=== PATIENT | female | born 1945 | race Caucasian/White ===

== ENCOUNTER 2021-01-20 13:34 | Emergency (ER) | payer MEDICARE ==
[2021-01-20 14:32] LABS: #Monocytes 0.3 10x3/uL (0.0-1.1); %Basophils 0.3 % (0.0-2.0); %Eosinophils 0.3 % (0.0-6.0); %Lymphocytes 26.6 % (18.0-47.0); %Monocytes 8.4 % (0.0-10.0); %Neutrophils 64.1 % (40.0-75.0); Hemoglobin 11.8 g/dL (12.0-15.5); Mean Corpuscular HGB CONC 33.1 g/dL (32.0-36.0); Mean Corpuscular Volume 87.7 fl (81.6-98.3); Mean Platelet Volume 10.4 fl (7.4-10.4); Platelet Count 114 10x3/uL (150-450); RBC Distribution Width 12.2 % (11.5-14.5); Red Blood Cell (RBC) Count 4.07 10x6/uL (3.90-5.03); White Blood Cell (WBC) Count 3.1 10x3/uL (3.5-10.5)
[2021-01-20] MEDS ORDERED: Ondansetron PF 4 MG/2 ML Vial ONE (14:44)
[2021-01-20 14:52] LABS: ALT (SGPT) 14 U/L (8-55); AST (SGOT) 25 U/L (5-34); Alkaline Phosphatase 77 U/L (40-110); Anion Gap 13 mmol/L (10-20); BUN (Urea Nitrogen) 14 mg/dL (9.8-20.1); Bilirubin, Total 0.3 mg/dL (0.2-1.2); Calc. Creatinine Clearance 0 mL/min (70-130); Calcium 8.5 mg/dL (7.8-10.44); Carbon Dioxide 24 mmol/L (23-31); Chloride 106 mmol/L (98-107); Globulin 2.7 g/dL (2.4-3.5); Glucose 101 mg/dL (83-110); Potassium 4.1 mmol/L (3.5-5.1); Protein, Total 5.7 g/dL (5.8-8.1); Sodium 139 mmol/L (136-145)
[2021-01-20 15:15] LABS: Bilirubin Neg (Negative); Blood, Urine Negative (Negative); Clarity Clear (Clear); Glucose, Urine (Dipstick) Normal (Negative); Ketone, Urine Negative (Negative); Leukocyte Negative (Negative); Nitrite Negative (Negative); Protein, Urine (Dipstick) 30 mg/dl (Neg-Trace); Urobilinogen Normal mg/dL (Less than 2)
[2021-01-20 15:28] LABS: Bacteria/HPF Rare-Few HPF (None Seen); Mucous/LPF 1+ LPF (<2+); RBC/HPF None Seen HPF (0-3); Renal Epithelial 0-3 HPF (None Seen); Squamous Epithelial None Seen HPF (0-3); Transitional Epithelial 0-3 HPF (None Seen); WBC/HPF 0-3 HPF (0-3)
[2021-01-20 15:34] LABS: Epithelial Cast 0-3 LPF (None Seen)
[2021-01-21 21:13] LABS: SARS-CoV-2 PCR by NAA DETECTED (NotDetected)
== END 2021-01-20 19:00 | disposition home or self-care (01) ==
LOC: CSHERS 13:34
DX: U07.1 COVID-19 (principal); D69.6 Thrombocytopenia, unspecified; E11.9 Type 2 diabetes mellitus without complications; E78.5 Hyperlipidemia, unspecified; I10 Essential (primary) hypertension; J45.909 Unspecified asthma, uncomplicated; Z79.4 Long term (current) use of insulin; Z79.899 Other long term (current) drug therapy; W19.XXXA Unspecified fall, initial encounter
CPT/HCPCS: 70450; 74177; 80053; 83880; 84484; 85025; 93005; U0003; U0005; 51701; 81003; 81015; 96374; J2405

== ENCOUNTER 2021-01-24 08:16 | Emergency (ER) | payer MEDICARE ==
[2021-01-24 08:47] LABS: #Eosinphils 0.1 10x3/uL (0.0-0.5); #Monocytes 0.3 10x3/uL (0.0-1.1); %Basophils 0.2 % (0.0-2.0); %Eosinophils 2.2 % (0.0-6.0); %Lymphocytes 17.8 % (18.0-47.0); %Monocytes 7.3 % (0.0-10.0); %Neutrophils 72.3 % (40.0-75.0); Hemoglobin 11.8 g/dL (12.0-15.5); Mean Corpuscular HGB CONC 33.6 g/dL (32.0-36.0); Mean Corpuscular Hemoglobin 28.4 pg (27.0-33.0); Mean Corpuscular Volume 84.6 fl (81.6-98.3); Mean Platelet Volume 9.9 fl (7.4-10.4); Platelet Count 204 10x3/uL (150-450); RBC Distribution Width 12.2 % (11.5-14.5); Red Blood Cell (RBC) Count 4.15 10x6/uL (3.90-5.03); White Blood Cell (WBC) Count 4.1 10x3/uL (3.5-10.5)
[2021-01-24 09:08] LABS: ALT (SGPT) 17 U/L (8-55); AST (SGOT) 23 U/L (5-34); Albumin 3.1 g/dL (3.4-4.8); Alkaline Phosphatase 73 U/L (40-110); Anion Gap 14 mmol/L (10-20); BUN (Urea Nitrogen) 12 mg/dL (9.8-20.1); Bilirubin, Total 0.4 mg/dL (0.2-1.2); Calc. Creatinine Clearance 0 mL/min (70-130); Calcium 8.9 mg/dL (7.8-10.44); Carbon Dioxide 23 mmol/L (23-31); Chloride 107 mmol/L (98-107); Globulin 2.9 g/dL (2.4-3.5); Glucose 94 mg/dL (83-110); Lipase 26 U/L (8-78); Potassium 3.7 mmol/L (3.5-5.1); Sodium 140 mmol/L (136-145)
[2021-01-24] MEDS ORDERED: Ondansetron PF 4 MG/2 ML Vial ONE (09:20)
[2021-01-24] MEDS ORDERED: Acetaminophen 500 MG TAB ONE (09:21)
[2021-01-24 09:44] LABS: SARS-CoV-2 NAA Rapid Test DETECTED (NotDetected)
[2021-01-24] MEDS ORDERED: Dexamethasone 10 MG/ML VIAL ONE (11:52)
[2021-01-24 12:09] LABS: Troponin I 0.011 ng/mL (< 0.028)
[2021-01-24] MEDS ORDERED: Ventolin HFA Inhaler 60 PUFF INHALER ONE (12:29)
== END 2021-01-24 12:54 | disposition home or self-care (01) ==
LOC: CSHERS 08:16
DX: U07.1 COVID-19 (principal); J12.82 Pneumonia due to coronavirus disease 2019; I10 Essential (primary) hypertension; E11.9 Type 2 diabetes mellitus without complications; J45.909 Unspecified asthma, uncomplicated; Z79.4 Long term (current) use of insulin; Z79.82 Long term (current) use of aspirin; Z79.899 Other long term (current) drug therapy
CPT/HCPCS: 0240U; 71045; 74177; 80053; 83690; 84484 ×2; 85025; 93005; 96374; 96375; J1100; J2405

== ENCOUNTER 2022-06-12 14:29 | Observation (INO) | payer MEDICARE ==
[2022-06-12 14:55] LABS: #Basophils 0.1 10x3/uL (0.0-0.2); #Eosinphils 0.2 10x3/uL (0.0-0.5); #Monocytes 0.2 10x3/uL (0.0-1.1); #Neutrophils 3.4 10x3/uL (1.5-8.4); %Basophils 1.1 % (0.0-2.0); %Monocytes 4.6 % (0.0-10.0); %Neutrophils 75.1 % (40.0-75.0); Hemoglobin 11.6 g/dL (12.0-15.5); Mean Corpuscular HGB CONC 32.2 g/dL (32.0-36.0); Mean Corpuscular Hemoglobin 29.2 pg (27.0-33.0); Mean Corpuscular Volume 90.7 fl (81.6-98.3); Mean Platelet Volume 10.3 fl (7.4-10.4); Platelet Count 191 10x3/uL (150-450); RBC Distribution Width 12.8 % (11.5-14.5); Red Blood Cell (RBC) Count 3.97 10x6/uL (3.90-5.03); White Blood Cell (WBC) Count 4.5 10x3/uL (3.5-10.5)
[2022-06-12 15:07] LABS: ALT (SGPT) 16 U/L (8-55); AST (SGOT) 18 U/L (5-34); Albumin 3.7 g/dL (3.4-4.8); Alkaline Phosphatase 123 U/L (40-110); Anion Gap 16 mmol/L (10-20); BUN (Urea Nitrogen) 19 mg/dL (9.8-20.1); Bilirubin, Total 0.5 mg/dL (0.2-1.2); Calc. Creatinine Clearance 0 mL/min (70-130); Calcium 8.7 mg/dL (7.8-10.44); Carbon Dioxide 21 mmol/L (23-31); Chloride 105 mmol/L (98-107); Estimated GFR 49; Globulin 2.7 g/dL (2.4-3.5); Glucose 146 mg/dL (83-110); Protein, Total 6.4 g/dL (5.8-8.1); Sodium 137 mmol/L (136-145)
[2022-06-12] MEDS ORDERED: Furosemide 40 MG/4 ML VIAL ONE (17:15)
[2022-06-12] MEDS ORDERED: Acetaminophen 325 MG TAB PO PRN (17:58)
[2022-06-12] MEDS ORDERED: Acetaminophen 650 MG Suppository PR PRN (17:58)
[2022-06-12 18:39] VITALS: BMI 43.6
[2022-06-12] MEDS ORDERED: Gabapentin 300 MG CAP ONE (18:58)
[2022-06-12] MEDS ORDERED: Gabapentin 300 MG CAP PO SCH (19:00)
[2022-06-12] MEDS ORDERED: Dextrose 50% Abboject 50 ML SYRINGE SLOW IVP PRN (19:58)
[2022-06-12] MEDS ORDERED: Dextrose 5% in Water 1,000 ML IV PRN (19:58)
[2022-06-12] MEDS ORDERED: Insulin Regular 300 UNITS/3 ML VIAL SC PRN (19:58)
[2022-06-12] MEDS ORDERED: Lorazepam 0.5 MG TAB PO PRN (20:13)
[2022-06-12 21:06] LABS: Bilirubin Neg (Negative); Blood, Urine Negative (Negative); Clarity Clear (Clear); Glucose, Urine (Dipstick) Normal (Negative); Ketone, Urine Negative (Negative); Leukocyte 25 (Negative); Nitrite Negative (Negative); Protein, Urine (Dipstick) Negative (Neg-Trace); Specific Gravity, Urine 1.005 (1.005-1.030); Urobilinogen Normal mg/dL (Less than 2)
[2022-06-12 21:17] LABS: Bacteria/HPF Rare-Few HPF (None Seen); RBC/HPF 0-3 HPF (0-3); Squamous Epithelial 0-3 HPF (0-3); WBC/HPF 0-3 HPF (0-3)
[2022-06-13 04:13] LABS: #Eosinphils 0.2 10x3/uL (0.0-0.5); #Monocytes 0.3 10x3/uL (0.0-1.1); #Neutrophils 3.1 10x3/uL (1.5-8.4); %Basophils 0.7 % (0.0-2.0); %Eosinophils 4.7 % (0.0-6.0); %Lymphocytes 15.2 % (18.0-47.0); %Monocytes 6.8 % (0.0-10.0); %Neutrophils 72.4 % (40.0-75.0); Hemoglobin 10.6 g/dL (12.0-15.5); Mean Corpuscular HGB CONC 33.3 g/dL (32.0-36.0); Mean Corpuscular Hemoglobin 29.4 pg (27.0-33.0); Mean Corpuscular Volume 88.1 fl (81.6-98.3); Mean Platelet Volume 10.3 fl (7.4-10.4); Platelet Count 181 10x3/uL (150-450); RBC Distribution Width 12.8 % (11.5-14.5); Red Blood Cell (RBC) Count 3.61 10x6/uL (3.90-5.03); White Blood Cell (WBC) Count 4.3 10x3/uL (3.5-10.5)
[2022-06-13 04:17] LABS: Anion Gap 16 mmol/L (10-20); BUN (Urea Nitrogen) 18 mg/dL (9.8-20.1); Calc. Creatinine Clearance 67 mL/min (70-130); Carbon Dioxide 24 mmol/L (23-31); Chloride 102 mmol/L (98-107); Estimated GFR 51; Glucose 113 mg/dL (83-110); Potassium 4.4 mmol/L (3.5-5.1); Sodium 138 mmol/L (136-145)
[2022-06-13 05:44] LABS: SARS-CoV-2 NAA Rapid Test Not Detected (NotDetected)
[2022-06-13] MEDS ORDERED: Enoxaparin Sodium 40 MG/0.4 ML SYRINGE ONE (08:26)
[2022-06-13] MEDS ORDERED: Enoxaparin Sodium 40 MG/0.4 ML SYRINGE SC SCH (09:00)
[2022-06-13 09:43] LABS: Legionella Urinary Ag Negative (Negative); Strep pneumo Urine Ag NEGATIVE (NEGATIVE)
[2022-06-13] MEDS ORDERED: Gabapentin 300 MG CAP PO SCH ×2 (13:00→21:00)
[2022-06-13] MEDS ORDERED: Lactated Ringer's 500 ML IV SCH (15:30)
[2022-06-13] MEDS: methylPREDNISolone Sod Succ 40 MG VIAL IVP SCH (17:29)
[2022-06-13] MEDS: Mometasone/Formoterol 60 PUFF AER INH SCH (20:57)
[2022-06-13] MEDS ORDERED: Atorvastatin Calcium 40 MG TAB PO SCH (21:00)
[2022-06-13] MEDS ORDERED: Zolpidem Tartrate 5 MG TAB PO SCH (22:45)
[2022-06-14] MEDS: methylPREDNISolone Sod Succ 40 MG VIAL IVP SCH (00:21)
[2022-06-14 06:17] LABS: Hemoglobin 11.8 g/dL (12.0-15.5); Mean Corpuscular HGB CONC 33.7 g/dL (32.0-36.0); Mean Corpuscular Hemoglobin 29.4 pg (27.0-33.0); Mean Corpuscular Volume 87.1 fl (81.6-98.3); Mean Platelet Volume 10.3 fl (7.4-10.4); Platelet Count 204 10x3/uL (150-450); RBC Distribution Width 12.6 % (11.5-14.5); Red Blood Cell (RBC) Count 4.02 10x6/uL (3.90-5.03); White Blood Cell (WBC) Count 5.6 10x3/uL (3.5-10.5)
[2022-06-14 06:33] LABS: Anion Gap 16 mmol/L (10-20); BUN (Urea Nitrogen) 22 mg/dL (9.8-20.1); Calc. Creatinine Clearance 61 mL/min (70-130); Calcium 9.2 mg/dL (7.8-10.44); Carbon Dioxide 21 mmol/L (23-31); Chloride 101 mmol/L (98-107); Estimated GFR 45; Glucose 274 mg/dL (83-110); Potassium 4.3 mmol/L (3.5-5.1); Sodium 134 mmol/L (136-145)
[2022-06-14] MEDS: Insulin Regular 300 UNITS/3 ML VIAL SC PRN ×2 (06:50→13:30)
[2022-06-14 06:52] LABS: MDiff Complete? YES; Platelet Morphology Comment Appears Adequate
[2022-06-14 06:57] LABS: Band 5 % (5-11); Eosinophils 1 % (0-10); Lymphocytes 4 % (21-51); Neutrophil 90 % (42-75)
[2022-06-14] MEDS: Mometasone/Formoterol 60 PUFF AER INH SCH (08:13)
[2022-06-14] MEDS ORDERED: Aspirin 81 mg Enteric Coated Tablet PO SCH (09:00)
[2022-06-14] MEDS ORDERED: Non-Formulary Medication 1 EACH (Gabapentin [Gabapentin] 600 MG Tablet) PO SCH (09:00)
[2022-06-14 13:31] VITALS: BP 128/57; TEMP 98.2
== END 2022-06-14 14:22 | disposition home or self-care (01) ==
LOC: CSHERS 14:29 → CSHERHOLD 17:53 → INTOOBSV 17:53 → CSHTELE 06-13 11:16
PROVIDERS: ADMIT Internal Medicine; ATTEND Internal Medicine
DX: J18.9 Pneumonia, unspecified organism (principal); E87.70 Fluid overload, unspecified; J44.9 Chronic obstructive pulmonary disease, unspecified; E11.9 Type 2 diabetes mellitus without complications; E78.5 Hyperlipidemia, unspecified; Z20.822 Contact with and (suspected) exposure to COVID-19; N17.9 Acute kidney failure, unspecified; H54.62 Unqualified visual loss, left eye, normal vision right eye; Z79.51 Long term (current) use of inhaled steroids; Z79.82 Long term (current) use of aspirin; Z88.0 Allergy status to penicillin; Z79.899 Other long term (current) drug therapy
CPT/HCPCS: 71045; 80048 ×2; 80053; 82962 ×3; 83880; 84484; 85025 ×3; 87449; 87899; 93005; 93306; 94640 ×4; 94664; 96372; 96374; 96375 ×2; 96376; 99285; G0378 ×4; U0002; 36415; 36416; 81003; 81015; J1650; J1815; J1940; J1956; J2920; J7620

== ENCOUNTER 2022-12-06 07:49 | Inpatient (IN) | payer MEDICARE ==
[2022-12-06 08:54] LABS: #Basophils 0.1 10x3/uL (0.0-0.2); #Monocytes 0.3 10x3/uL (0.0-1.1); #Neutrophils 13.2 10x3/uL (1.5-8.4); %Basophils 0.5 % (0.0-2.0); %Eosinophils 0.1 % (0.0-6.0); %Lymphocytes 1.8 % (18.0-47.0); %Monocytes 1.9 % (0.0-10.0); %Neutrophils 95.3 % (40.0-75.0); Hemoglobin 11.7 g/dL (12.0-15.5); Mean Corpuscular HGB CONC 32.1 g/dL (32.0-36.0); Mean Corpuscular Hemoglobin 28.5 pg (27.0-33.0); Mean Corpuscular Volume 88.6 fl (81.6-98.3); Mean Platelet Volume 10.6 fl (7.4-10.4); Platelet Count 189 10x3/uL (150-450); RBC Distribution Width 12.7 % (11.5-14.5); Red Blood Cell (RBC) Count 4.11 10x6/uL (3.90-5.03); White Blood Cell (WBC) Count 13.9 10x3/uL (3.5-10.5)
[2022-12-06 09:17] LABS: ALT (SGPT) 16 U/L (8-55); AST (SGOT) 26 U/L (5-34); Albumin 3.7 g/dL (3.4-4.8); Alkaline Phosphatase 140 U/L (40-110); Anion Gap 17 mmol/L (10-20); BUN (Urea Nitrogen) 22 mg/dL (9.8-20.1); Bilirubin, Total 0.9 mg/dL (0.2-1.2); Calc. Creatinine Clearance 0 mL/min (70-130); Calcium 8.8 mg/dL (7.8-10.44); Carbon Dioxide 21 mmol/L (23-31); Chloride 102 mmol/L (98-107); Estimated GFR 30; Globulin 2.9 g/dL (2.4-3.5); Glucose 101 mg/dL (83-110); Potassium 4.8 mmol/L (3.5-5.1); Protein, Total 6.6 g/dL (5.8-8.1); Sodium 135 mmol/L (136-145)
[2022-12-06 09:41] LABS: CKMB 4.2 ng/mL (0-6.6)
[2022-12-06 09:47] LABS: INR-International Normal Ratio 1.1; PTT 30.8 sec (22.0-33.0); Prothrombin Time 11.6 sec (9.5-12.1)
[2022-12-06] MEDS ORDERED: Aspirin Chewable 81 MG TAB ONE (10:05)
[2022-12-06] MEDS ORDERED: Acetaminophen 325 MG TAB PO PRN (10:06)
[2022-12-06] MEDS ORDERED: Ondansetron PF 4 MG/2 ML Vial IVP PRN (10:06)
[2022-12-06] MEDS ORDERED: Calcium Carbonate 500 MG ChewTAB PO PRN (10:06)
[2022-12-06 10:10] LABS: Bilirubin 3+ (Negative); Blood, Urine 10 (Negative); Clarity Slightly Cloudy (Clear); Glucose, Urine (Dipstick) Normal (Negative); Ketone, Urine 5 mg/dL (Negative); Leukocyte 500 (Negative); Nitrite Negative (Negative); Protein, Urine (Dipstick) 30 mg/dl (Neg-Trace)
[2022-12-06] MEDS ORDERED: Sodium Chloride 0.9% 1,000 ML IV SCH (10:15)
[2022-12-06 10:24] LABS: Bacteria/HPF 1+ HPF (None Seen); CAUTI Indications for Culture Alt mental st,lethar; RBC/HPF 0-3 HPF (0-3); Squamous Epithelial 0-3 HPF (0-3); WBC/HPF 21-50 HPF (0-3)
[2022-12-06 10:25] LABS: Urine Culture Reflex Yes Yes
[2022-12-06] MEDS ORDERED: Loperamide HCl 2 MG CAP PO SCH (11:30)
[2022-12-06] MEDS ORDERED: Nitroglycerin 2% Ointment 1 INCH/1 GM Packet TOP SCH ×2 (11:30→21:00)
[2022-12-06 12:03] VITALS: BMI 48.4
[2022-12-06 12:48] LABS: Critical Call Chem Troponin I RESULT DECREASING; Troponin I 1.867 ng/mL (< 0.028)
[2022-12-06] MEDS: metroNIDAZOLE 500 MG in Premix Bag 1 BAG IVPB SCH ×2 (14:07→22:07)
[2022-12-06] MEDS ORDERED: Morphine 2 MG/ML VIAL SLOW IVP PRN (15:30)
[2022-12-06] MEDS ORDERED: Gabapentin 300 MG CAP PO SCH (15:45)
[2022-12-06] MEDS ORDERED: Ibuprofen 600 MG TAB PO SCH (16:30)
[2022-12-06 16:47] LABS: Troponin I 1.431 ng/mL (< 0.028)
[2022-12-06] MEDS: Mometasone/Formoterol 60 PUFF AER INH SCH (19:05)
[2022-12-06] MEDS: Gabapentin 300 MG CAP PO SCH (21:48)
[2022-12-06] MEDS: Enoxaparin 120 MG/0.8 ML SYRINGE SC SCH (21:48)
[2022-12-06] MEDS: Atorvastatin Calcium 40 MG TAB PO SCH (21:48)
[2022-12-06] MEDS: Zolpidem Tartrate 5 MG TAB PO PRN (21:59)
[2022-12-07] MEDS: metroNIDAZOLE 500 MG in Premix Bag 1 BAG IVPB SCH ×3 (05:10→22:10)
[2022-12-07 05:18] LABS: #Eosinphils 0.1 10x3/uL (0.0-0.5); #Monocytes 0.3 10x3/uL (0.0-1.1); %Basophils 0.4 % (0.0-2.0); %Eosinophils 0.8 % (0.0-6.0); %Lymphocytes 4.1 % (18.0-47.0); %Monocytes 4.1 % (0.0-10.0); %Neutrophils 90.2 % (40.0-75.0); Hemoglobin 9.8 g/dL (12.0-15.5); Mean Corpuscular HGB CONC 32.2 g/dL (32.0-36.0); Mean Corpuscular Hemoglobin 28.2 pg (27.0-33.0); Mean Corpuscular Volume 87.4 fl (81.6-98.3); Mean Platelet Volume 11.4 fl (7.4-10.4); Platelet Count 133 10x3/uL (150-450); RBC Distribution Width 12.5 % (11.5-14.5); Red Blood Cell (RBC) Count 3.48 10x6/uL (3.90-5.03); White Blood Cell (WBC) Count 7.7 10x3/uL (3.5-10.5)
[2022-12-07 05:30] LABS: ALT (SGPT) 13 U/L (8-55); AST (SGOT) 23 U/L (5-34); Albumin 2.9 g/dL (3.4-4.8); Alkaline Phosphatase 107 U/L (40-110); Anion Gap 13 mmol/L (10-20); BUN (Urea Nitrogen) 25 mg/dL (9.8-20.1); Calc. Creatinine Clearance 59 mL/min (70-130); Calcium 8.4 mg/dL (7.8-10.44); Carbon Dioxide 20 mmol/L (23-31); Cardiac Risk 3.5 (Less than 4.5); Chloride 100 mmol/L (98-107); Cholesterol 90 mg/dl (< 200 Desired); Estimated GFR 39; Globulin 2.7 g/dL (2.4-3.5); Glucose 125 mg/dL (83-110); HDL Cholesterol 26 mg/dL (>60 Neg Risk); LDL Cholesterol, Calculated 40 mg/dL; Potassium 3.9 mmol/L (3.5-5.1); Protein, Total 5.6 g/dL (5.8-8.1); Sodium 129 mmol/L (136-145); Triglycerides 121 mg/dL (Less than 150)
[2022-12-07 06:06] LABS: CKMB 5.7 ng/mL (0-6.6)
[2022-12-07] MEDS: Mometasone/Formoterol 60 PUFF AER INH SCH ×2 (07:26→19:55)
[2022-12-07] MEDS ORDERED: Enoxaparin 120 MG/0.8 ML SYRINGE SC ONE (08:38)
[2022-12-07] MEDS: Gabapentin 300 MG CAP PO SCH ×3 (08:43→21:02)
[2022-12-07] MEDS: Aspirin 81 mg Enteric Coated Tablet PO SCH (08:43)
[2022-12-07] MEDS: Enoxaparin 120 MG/0.8 ML SYRINGE SC SCH ×2 (08:45→21:09)
[2022-12-07] MEDS: Lantus 1000 UNITS/10 ML VIAL SC SCH (08:59)
[2022-12-07] MEDS ORDERED: Amlodipine 5 MG TAB PO SCH ×2 (09:00)
[2022-12-07 13:10] LABS: Hemoglobin A1c 6.6 % (4.0-6.0)
[2022-12-07] MEDS ORDERED: Sodium Bicarbonate Tab 325 MG TAB PO SCH (15:00)
[2022-12-07] MEDS: Sodium Chloride 0.9% 1,000 ML IV SCH (16:59)
[2022-12-07] MEDS: Sodium Bicarbonate Tab 325 MG TAB PO SCH (21:02)
[2022-12-07] MEDS: Zolpidem Tartrate 5 MG TAB PO PRN (21:03)
[2022-12-07] MEDS: Atorvastatin Calcium 40 MG TAB PO SCH (21:03)
[2022-12-08 05:44] LABS: #Eosinphils 0.1 10x3/uL (0.0-0.5); #Monocytes 0.5 10x3/uL (0.0-1.1); #Neutrophils 5.4 10x3/uL (1.5-8.4); %Basophils 0.5 % (0.0-2.0); %Eosinophils 1.4 % (0.0-6.0); %Lymphocytes 8.4 % (18.0-47.0); %Monocytes 7.2 % (0.0-10.0); Mean Corpuscular HGB CONC 33.3 g/dL (32.0-36.0); Mean Corpuscular Hemoglobin 28.7 pg (27.0-33.0); Mean Platelet Volume 10.5 fl (7.4-10.4); Platelet Count 136 10x3/uL (150-450); RBC Distribution Width 12.7 % (11.5-14.5); Red Blood Cell (RBC) Count 3.49 10x6/uL (3.90-5.03); White Blood Cell (WBC) Count 6.5 10x3/uL (3.5-10.5)
[2022-12-08] MEDS: Sodium Chloride 0.9% 1,000 ML IV SCH (05:59)
[2022-12-08] MEDS: metroNIDAZOLE 500 MG in Premix Bag 1 BAG IVPB SCH ×3 (05:59→21:28)
[2022-12-08 06:00] LABS: Anion Gap 12 mmol/L (10-20); BUN (Urea Nitrogen) 19 mg/dL (9.8-20.1); Calc. Creatinine Clearance 73 mL/min (70-130); Calcium 8.4 mg/dL (7.8-10.44); Carbon Dioxide 23 mmol/L (23-31); Chloride 104 mmol/L (98-107); Estimated GFR 51; Glucose 101 mg/dL (83-110); Magnesium 1.5 mg/dL (1.6-2.6); Potassium 3.8 mmol/L (3.5-5.1); Sodium 135 mmol/L (136-145)
[2022-12-08] MEDS: Mometasone/Formoterol 60 PUFF AER INH SCH ×2 (07:25→18:58)
[2022-12-08] MEDS ORDERED: Magnesium 2 GM/50 ML(in water) 2 GM in Premix Bag 1 BAG IVPB SCH (09:00)
[2022-12-08] MEDS: Gabapentin 300 MG CAP PO SCH ×3 (09:10→21:29)
[2022-12-08] MEDS: Aspirin 81 mg Enteric Coated Tablet PO SCH (09:10)
[2022-12-08] MEDS: Sodium Bicarbonate Tab 325 MG TAB PO SCH ×3 (09:10→21:26)
[2022-12-08] MEDS: Enoxaparin 120 MG/0.8 ML SYRINGE SC SCH ×2 (09:11→21:27)
[2022-12-08] MEDS: Lantus 1000 UNITS/10 ML VIAL SC SCH (09:11)
[2022-12-08] MEDS ORDERED: Magnesium 2 GM/50 ML BAG (IN WATER) ONE (09:25)
[2022-12-08] MEDS ORDERED: metroNIDAZOLE 500 MG/100 ML BAG ONE (14:25)
[2022-12-08 16:23] LABS: Campy jejuni + coli by PCR Negative (Negative); STEC Shiga Toxin 1+2 Negative (Negative); Salmonella spp. by PCR Negative (Negative); Shigella spp + EIEC by PCR Negative (Negative)
[2022-12-08] MEDS ORDERED: cefTRIAXone\\ROCEPHIN 2 GM in Sodium Chloride 0.9% 100 ML IVPB SCH (17:00)
[2022-12-08] MEDS: Zolpidem Tartrate 5 MG TAB PO PRN (21:26)
[2022-12-08] MEDS: Atorvastatin Calcium 40 MG TAB PO SCH (21:27)
[2022-12-09] MEDS: metroNIDAZOLE 500 MG in Premix Bag 1 BAG IVPB SCH (05:20)
[2022-12-09 05:52] LABS: #Eosinphils 0.2 10x3/uL (0.0-0.5); #Monocytes 0.4 10x3/uL (0.0-1.1); #Neutrophils 4.7 10x3/uL (1.5-8.4); %Basophils 0.2 % (0.0-2.0); %Eosinophils 2.7 % (0.0-6.0); %Lymphocytes 9.7 % (18.0-47.0); %Neutrophils 79.7 % (40.0-75.0); Hemoglobin 9.6 g/dL (12.0-15.5); Mean Corpuscular HGB CONC 33.1 g/dL (32.0-36.0); Mean Corpuscular Hemoglobin 28.5 pg (27.0-33.0); Mean Corpuscular Volume 86.1 fl (81.6-98.3); Mean Platelet Volume 10.5 fl (7.4-10.4); Platelet Count 152 10x3/uL (150-450); RBC Distribution Width 12.7 % (11.5-14.5); Red Blood Cell (RBC) Count 3.37 10x6/uL (3.90-5.03); White Blood Cell (WBC) Count 5.9 10x3/uL (3.5-10.5)
[2022-12-09 06:05] LABS: Anion Gap 13 mmol/L (10-20); BUN (Urea Nitrogen) 14 mg/dL (9.8-20.1); Calc. Creatinine Clearance 83 mL/min (70-130); Calcium 8.1 mg/dL (7.8-10.44); Carbon Dioxide 22 mmol/L (23-31); Chloride 106 mmol/L (98-107); Estimated GFR 59; Glucose 97 mg/dL (83-110); Magnesium 1.7 mg/dL (1.6-2.6); Potassium 3.5 mmol/L (3.5-5.1); Sodium 137 mmol/L (136-145)
[2022-12-09] MEDS: Mometasone/Formoterol 60 PUFF AER INH SCH (07:50)
[2022-12-09] MEDS ORDERED: Enoxaparin 120 MG/0.8 ML SYRINGE SC ONE (08:47)
[2022-12-09] MEDS: Sodium Bicarbonate Tab 325 MG TAB PO SCH (08:49)
[2022-12-09] MEDS: Gabapentin 300 MG CAP PO SCH (08:49)
[2022-12-09] MEDS: Aspirin 81 mg Enteric Coated Tablet PO SCH (08:49)
[2022-12-09] MEDS: Enoxaparin 120 MG/0.8 ML SYRINGE SC SCH (08:50)
[2022-12-09] MEDS: Lantus 1000 UNITS/10 ML VIAL SC SCH (09:58)
[2022-12-09 11:27] VITALS: BP 120/60; TEMP 97.9
== END 2022-12-09 11:55 | disposition home or self-care (01) | DRG 871 ==
LOC: SUATTDRO 07:49 → CSHERS 07:49 → CSHTELE 11:27
PROVIDERS: ADMIT Internal Medicine; ATTEND Internal Medicine
PROC: 30233J1 Transfusion of Nonautologous Serum Albumin into Peripheral Vein, Percutaneous Approach (ICD-10-PCS; principal; 2022-12-06)
DX: A41.89 Other specified sepsis (principal); I21.A1 Myocardial infarction type 2; I13.0 Hypertensive heart and chronic kidney disease with heart failure and stage 1 through stage 4 chronic kidney disease, or unspecified chronic kidney disease; E87.1 Hypo-osmolality and hyponatremia; I50.32 Chronic diastolic (congestive) heart failure; N17.9 Acute kidney failure, unspecified; N39.0 Urinary tract infection, site not specified; Z66 Do not resuscitate; N18.9 Chronic kidney disease, unspecified; E11.22 Type 2 diabetes mellitus with diabetic chronic kidney disease; E86.0 Dehydration; J44.9 Chronic obstructive pulmonary disease, unspecified; R19.7 Diarrhea, unspecified; B96.1 Klebsiella pneumoniae [K. pneumoniae] as the cause of diseases classified elsewhere; E78.5 Hyperlipidemia, unspecified; Z88.0 Allergy status to penicillin; Z91.048 Other nonmedicinal substance allergy status; Z79.82 Long term (current) use of aspirin; Z79.51 Long term (current) use of inhaled steroids; Z79.899 Other long term (current) drug therapy; Z90.49 Acquired absence of other specified parts of digestive tract; Z98.890 Other specified postprocedural states
CPT/HCPCS: 36415; 36416; 51701; 71045; 74176; 80048; 80053; 80061; 81001; 82553; 83036; 83605; 83630; 83735; 84145; 84484; 85025; 85610; 85730; 87040; 87077; 87086; 87149; 87186; 87324; 87449; 87505; 93005; 93010; 94664; 94760; 94762; 96372; J0696; J1650; J1815; J1956; J3475; J3490; J7050